=== PATIENT | female | born 1955 | race Caucasian/White ===

== ENCOUNTER → 2018-07-04 15:02 | Outpatient (CLI) | payer OTHER, SELFPAY ==
--- NOTE | 2018-07-04 15:09 | XR_ITS ---
XR knee RT 3V HISTORY: Right knee pain with locking ITS.REASON: LOCKING RT KNEE ORDERING PHYSICIAN: Cecelia Olson PATIENT AGE: 62 years COMPARISON: None FINDINGS: No fracture or dislocation. Mild bony spurring is present at the distal femur and proximal tibia laterally and at the interspinous region as well as the patellofemoral joint with slight decrease in the patellofemoral joint space. These findings are consistent with osteoarthritis. No obvious effusion. IMPRESSION: Osteoarthritis of the right knee worse at the patellofemoral joint
== END ==
PROVIDERS: PCP Nurse Practitioner Family; Visit Provider Nurse Practitioner Family
DX: M23.91 Unspecified internal derangement of right knee (principal)
CPT/HCPCS: 73562

== ENCOUNTER → 2020-02-08 12:01 | Outpatient (CLI) | payer MEDICARE, BC, SELFPAY ==
--- NOTE | 2020-02-08 12:07 | MR_ITS ---
PROCEDURE: MR LUMBAR SPINE WO CON CLINICAL INDICATION: LOW BACK PAIN, RIGHT HIP PAIN Low back pain and right leg pain COMPARISON: No exams were available for comparison TECHNIQUE: Standard multiplanar multiecho sequences are performed without contrast. 3-D MIP and myelographic images are also rendered and reviewed FINDINGS: The spinal cord ends at the L1 level. T11-T12, T12-L1, L1-L2, L2-L3, and L3-L4 have an unremarkable appearance. L4-5: There is 5 mm anterolisthesis of L4 with bulging disc at that level along with facet and ligamentum hypertrophy resulting in mild bilateral lateral recess and foraminal narrowing. There is some increased T2 signal within the mid and posterior aspect of the disc at this level. L5-S1: Minimal bulging disc. There is some minimal right paracentral disc protrusion which abuts the anterior medial aspect of the right S1 nerve root with the right lateral recess narrowing. Incidental note is made parapelvic renal cysts on both sides. IMPRESSION: 1. L4-5: There is 5 mm anterolisthesis of L4 with bulging disc at that level along with facet and ligamentum hypertrophy resulting in moderate bilateral lateral recess narrowing right greater than left with suggestion of some impingement upon the right L5 nerve root. There is mild bilateral foraminal narrowing at this level.. There is some increased T2 signal within the mid and posterior aspect of the disc at this level. 2. L5-S1: Minimal bulging disc. There is minimal right paracentral disc protrusion which abuts the anterior medial aspect of the right S1 nerve root with the right lateral recess narrowing 3. No extruded herniated disc evident. Dictated by: Gato Preciado MD 02/09/2020 12:46 Electronically signed by Gato Preciado MD in [place] 02/09/2020 12:46
--- NOTE | 2020-02-08 12:08 | MR_ITS ---
PROCEDURE: MR HIP RT W CON Right hip arthrogram CLINICAL INDICATION: LOW BACK PAIN, RIGHT HIP PAIN right hip pain, low back pain, tendinitis/bursitis COMPARISON: XR HIP RT 2-3V W/PELVIS from 02/08/2020 IR ARTHROGRAM HIP RT from 02/08/2020 TECHNIQUE: Following obtaining informed consent and time-out procedure under aseptic conditions and local anesthesia with 1 percent buffered lidocaine, 22 gauge spinal needle was inserted into the right hip joint capsule along the superior aspect of the right femoral neck. Approximately 10 mL of a mixture Optiray 320, normal saline, 1 percent lidocaine, and gadolinium was injected into the joint capsule and deemed to be in satisfactory position under our fluoroscopic guidance. The needle was then removed and spot views obtained. The patient tolerated the procedure well without evidence of immediate complication and then went to the MRI suite where post arthrographic MRI images were obtained. FINDINGS: Arthrogram: There was normal localization of contrast which flowed freely into the joint. Minimal osteoarthritic changes were noted. A calcified fibroid is present in the lower pelvis. MR arthrogram: There is no evidence of avascular necrosis. There are minimal osteoarthritic changes of both hips. No fracture or dislocation evident. There is normal localization of the contrast within the hip joint capsule and hip joint. The there was some extravasation of contrast into the soft tissues along the proximal femur anteriorly. No obvious labral tear. The overlying soft tissues have an unremarkable appearance. Incidental note is made of multiple hypo intense lesions within the uterus the largest inferiorly measuring 3.1 cm consistent with uterine fibroids IMPRESSION: 1. No evidence of avascular necrosis or labral tear. 2. Mild osteoarthritic changes of the hips. 3. Uterine fibroids Dictated by: Gato Preciado MD 02/09/2020 12:56 Electronically signed by Gato Preciado MD in [place] 02/09/2020 12:56
== END ==
PROVIDERS: PCP Family Medicine; Visit Provider Orthopaedic Surgery
DX: M54.5 Low back pain (principal); M25.551 Pain in right hip
CPT/HCPCS: 72148; 73502; 73525; 73722; 76376; Q9967

== ENCOUNTER 2020-03-12 14:00 | Outpatient (RCR) | payer MEDICARE, SELFPAY | END 2020-03-12 14:05 | disposition home or self-care (01) | LOC: PT 14:00 | DX: M51.36 Other intervertebral disc degeneration, lumbar region (principal); M25.551 Pain in right hip | CPT/HCPCS: 20560; 97010; 97014; 97035; 97110; 97163; 97164; G0283 ==

== ENCOUNTER 2020-09-13 15:00 | Outpatient (RCR) | payer MEDICARE, SELFPAY | END 2020-09-13 15:05 | disposition home or self-care (01) | LOC: PT 15:00 | PROVIDERS: PCP Family Medicine; Visit Provider Internal Medicine | DX: M25.551 Pain in right hip (principal); M51.36 Other intervertebral disc degeneration, lumbar region | CPT/HCPCS: 20561; 97010; 97012; 97014; 97033; 97035; 97110; 97163; 97164; G0283 ==

== ENCOUNTER → 2021-07-16 09:31 | Outpatient (CLI) | payer MEDICARE, SELFPAY | PROVIDERS: Visit Provider Internal Medicine Gastroenterology | DX: Z01.812 Encounter for preprocedural laboratory examination (principal); Z20.822 Contact with and (suspected) exposure to COVID-19; Z12.11 Encounter for screening for malignant neoplasm of colon | CPT/HCPCS: C9803; U0003; U0005 ==

== ENCOUNTER 2021-07-18 07:59 | Day surgery (SDC) | payer MEDICARE, BC, SELFPAY ==
[2021-07-11 09:08] VITALS: BMI 32.3
[2021-07-18] VITALS (7 sets, daily range): BP systolic 110–138; BP diastolic 60–96; PULSE 76–97; RESP 16–18; TEMP 36.1–36.2; O2SAT 93–98
--- NOTE | 2021-07-18 09:13 | HMH.ANESCL ---
[facility] Anesthesia Checklist - Patient Identification Patient Identification: Arm Band, Verbal (Name & ) - Structural Data Admitted From: Home Planned Operative Procedure/s: Colonoscopy Consent for Planned Operative Procedure(s) Verified: Yes Verified Documents: Surgical Consent - NPO Status Verified Time NPO: 05:00 - Cardiovascular Assessment Heart Sounds: S1 & S2 Pulse Rhythm: Regular - Airway Assessment C-Spine Mobility Assessed: Yes TMJ Mobility Assessed: Yes Dentition: Good Dentition - Neurological Assessment Level of Consciousness: Awake, Alert, Appropriate - Anesthesia Plan Anesthesia Risk discussed: Yes ASA Class: II Anesthesia Type: General [facility] History Medical History: Denies:: Cancer, Diabetes Mellitus Type 1, Diabetes Mellitus Type 2, Internal Pacemaker, MRSA, Seizures *Have you ever received a pneumonia vaccine?: Yes *Have you received a flu vaccine this season?: Yes Anesthesia experience/problems:: none Laterality Cases: Left: Other, Right: Cataract Other Surgeries: No: Pacemaker Amputation: No Fractures: No - *Social History Last grade of school completed: Some college Smoking Status: Never smoker Alcohol Intake: current Alcohol Intake Frequency:: a few times a month Substance Use Type: denies use *Occupational Status:: retired Housing: house Household Members: spouse *Travel in the last 8 weeks: Inside the [facility] Family Hx:: Hypertension
--- NOTE | 2021-07-18 10:29 | HMH.PROC ---
[facility] Procedure Note Procedure Note:: Colonoscopy Procedure Report: Colonoscopy with cold snare polypectomy Endoscopist: Dexter Cagle II, MD Referring physician: Gracie Hutton MD Date of Procedure: July 18, 2021 Equipment: Olympus 190 variable stiffness pediatric colonoscope Sedation: MAC sedation Indication: Mrs. Emery is a 65-year-old female who is here for follow-up screening/surveillance colonoscopy secondary to a personal history of adenomatous polyps. Her colonoscopy in July 2014 revealed a single sigmoid polyp (tubular adenoma) which was removed. The patient had colonoscopies prior to this (Dr. Jorge Alberto De La Paz). The patient is scheduled for cholecystectomy in mid July (she states WednesdayAugust 05) due to gallbladder sludge and possible gallbladder stones. She has had one gallbladder attack. She reports no abdominal pain, weight loss, change in her bowel habits or rectal bleeding. She reports no family history of colon cancer. Procedure: Prior to the procedure, a history and physical exam was performed, and patient's medications and allergies were reviewed. The risks, benefits and alternatives of the sedation and procedure were discussed with the patient. All questions were answered and informed consent was obtained. The patient was brought to the procedure room. Patient identification and proposed procedure were verified by the physician and the nurse. The patient was placed in a left lateral decubitus position and the scope was passed under direct vision. Throughout the procedure, the patient's blood pressure, pulse, and oxygen saturations were monitored continuously. The colonoscopy was accomplished without difficulty. The patient tolerated the procedure well. Findings: On digital rectal examination there was normal rectal tone. There were no external hemorrhoids. The colonoscope was introduced through the anal canal to the rectum and advanced to the cecum. The ileocecal valve and appendiceal orifice were identified. The scope was advanced a short distance into the ileum which appeared grossly normal. The scope was then withdrawn into the colon. The cecum, ascending and transverse colon and mucosa were grossly normal. There was a single 4 mm descending colon polyp removed via cold snare polypectomy. There were scattered diverticuli throughout the descending and sigmoid colon (LEFT colon). The rectum itself was normal. Upon retroflexion within the rectum there were grade 1-2 internal hemorrhoids. The preparation was excellent throughout with [place] Preparation Score of 9. The cecal time was 12 minutes. Impression: 1. Diminutive descending colon polyp (4 mm) 2. Left-sided diverticulosis 3. Grade 1-2 internal hemorrhoids Plan: I will follow up the polyp pathology and recommend repeat colonoscopy again in 7-10 years based upon the polyp histology. I would encourage bulking fiber supplementation on a long-term daily maintenance basis.
== END 2021-07-18 11:35 | disposition home or self-care (01) ==
LOC: OUTP 08:02
PROVIDERS: PCP Internal Medicine; Visit Provider Internal Medicine Gastroenterology
PROC: 0DJD8ZZ Inspection of Lower Intestinal Tract, Via Natural or Artificial Opening Endoscopic (ICD-10-PCS; CPT 45378; principal; 2021-07-18 09:00)
DX: Z12.11 Encounter for screening for malignant neoplasm of colon (principal); Z86.010 Personal history of colon polyps; K63.5 Polyp of colon; K57.32 Diverticulitis of large intestine without perforation or abscess without bleeding; K64.0 First degree hemorrhoids; Z82.49 Family history of ischemic heart disease and other diseases of the circulatory system; Z88.1 Allergy status to other antibiotic agents; Z88.8 Allergy status to other drugs, medicaments and biological substances; Z79.899 Other long term (current) drug therapy
CPT/HCPCS: 45385; 88305

== ENCOUNTER 2022-03-23 15:57 | Emergency (ER) | payer MEDICARE, BC, SELFPAY ==
[2022-03-23 15:58] VITALS: BP 114/79; PULSE 93; RESP 16; TEMP 36.6; O2SAT 98; BMI 30.4
[2022-03-23 16:30] VITALS: BP 125/81; PULSE 89; RESP 16; O2SAT 98
--- NOTE | 2022-03-23 16:30 | HMH.EDGENADL ---
ED Disposition Clinical Impression: Head injury Qualifiers: Encounter type: initial encounter Qualified Code(s): S09.90XA - Unspecified injury of head, initial encounter Disposition: Home, Self-Care Condition on Discharge: Good Referrals: Provider,Referral, [Primary Care Provider] - - Critical Care Critical Care Time: No Attestation: On 03/23/22, the high probability of a clinically significant, sudden or life threatening deterioration of the following system(s) required my full and direct attention, intervention and personal management. The time I documented below is in addition to time spent performing reported procedures but includes the following listed in this critical care notation. Medical Decision Making - Medical Records Medical records reviewed: Yes: I reviewed the patient's medical records. - [place] Inquiry Pt receiving controlled substance: No Vital Signs: 03/23/22 15:58 03/23/22 16:30 Temperature 98 F Temperature Source Oral Pulse Rate 89 Pulse Rate [Radial] 93 H Respiratory Rate 16 16 Blood Pressure 125/81 Blood Pressure [Right Arm] 114/79 Blood Pressure Mean 96 Blood Pressure Mean [Right Arm] 90 Blood Pressure Position [Right Arm] Sitting 02 Sat by Pulse Oximetry 98 98 Oxygen Delivery Method Room Air - Lab Data Lab results reviewed: Yes: I reviewed the patient's lab results. Orders (Tests/Meds): ED MEDICATIONS Generic Name Dose Route Start Last Admin Trade Name Freq PRN Reason Stop Dose Admin Methocarbamol 1,000 mg 03/23/22 21:00 03/23/22 16:59 Methocarbamol 500mg Tablet PO 04/22/22 20:59 1,000 mg BID SEFERINO Administration Discontinued Medications Generic Name Dose Route Start Last Admin Trade Name Freq PRN Reason Stop Dose Admin Acetaminophen 1,000 mg 03/23/22 16:52 03/23/22 16:59 Acetaminophen 500mg Tab PO 03/23/22 16:53 1,000 mg ONCE ONE Administration Ibuprofen 400 mg 03/23/22 16:52 03/23/22 16:59 Ibuprofen 400 Mg Tablet PO 03/23/22 16:53 400 mg ONCE ONE Administration Medical Decision Narrative: Patient is a 66-year-old female presenting with a chief complaint of headache and dizziness after she fell and hit her head. Differential diagnosis includes, but is not limited to, skull fracture, intracranial bleeding, injury to the neck, concussion, posttraumatic headache. On initial exam, patient is hemodynamically stable and nontoxic-appearing. She has a nonfocal neurological exam and intact cerebellar function. She was treated with Tylenol, Motrin, Robaxin and evaluate CT head and CT C-spine. Imaging was negative for acute injury. On reassessment, patient continues to be stable. She was advised regarding supportive care at home, discharged in a stable condition. General Adult HPI - General Chief complaint: Head Injury Stated complaint: ao 03/23 FELL HIT HEAD Time Seen by Provider: 03/23/22 16:30 Mode of Arrival: Ambulatory Limitations: No Limitations Description of Symptoms (Recalled from ER Triage Doc. by RN): TO ED PER PVT CAR PT STATES FELL BACKWARDS OFF A SWING HITTING BACK OF HEAD ON CONCRETE DENIES ANY LOC, NAUSEA, VOMITING. PT STATES SHE FELT DIZZY WHEN SHE STOOD UP FROM FALLING. - History of Present Illness HPI narrative: Kaylynn is a 66-year-old female presenting with a chief complaint of head injury. Patient was to sit on a swing but missed and hit the occipital part of her head on the concrete. She denies loss of consciousness but states that she has been feeling dizzy and has a headache. No focal weakness or numbness or difficulty with coordination. Patient has not been confused per . She does not take blood thinners. - Related Data Home Medications Medication Instructions Recorded Confirmed Bifidobacterium Infantis [Align] 4 mg PO DAILY 07/11/21 07/18/21 Diclofenac Sodium [Diclofenac 75mg 75 mg PO BID 07/11/21 07/18/21 Tab] Esomeprazole Magnesium [Nexium] 40 mg PO DAILY
--- NOTE | 2022-03-23 16:51 | CT_ITS ---
PROCEDURE INFORMATION: Exam: CT Head Without Contrast Exam date and time: 03/23/2022 5:03 PM Age: 66 years old Clinical indication: Injury or trauma; Fall; Blunt trauma (contusions or hematomas); Without loss of consciousness; Injury date: 03/23/22; Additional info: Head injury-s/p fall out of porch swing hit head on concrete TECHNIQUE: Imaging protocol: Computed tomography of the head without contrast. Radiation optimization: All CT scans at this facility use at least one of these dose optimization techniques: automated exposure control; mA and/or kV adjustment per patient size (includes targeted exams where dose is matched to clinical indication); or iterative reconstruction. COMPARISON: No relevant prior studies available. FINDINGS: Brain: Normal. No hemorrhage. Unremarkable white matter. No mass effect. Cerebral ventricles: No ventriculomegaly. Paranasal sinuses: Visualized sinuses are unremarkable. No fluid levels. Mastoid air cells: Visualized mastoid air cells are well aerated. Bones/joints: Unremarkable. No acute fracture. Soft tissues: Unremarkable. IMPRESSION: No acute intracranial abnormality.
--- NOTE | 2022-03-23 16:52 | CT_ITS ---
PROCEDURE INFORMATION: Exam: CT Cervical Spine Without Contrast Exam date and time: 03/23/2022 5:06 PM Age: 66 years old Clinical indication: Injury or trauma; Fall; Blunt trauma; Injury date: 03/23/22; Additional info: Neck pain S/P fall-s/p fall out of porch swing hit head on concrete TECHNIQUE: Imaging protocol: Computed tomography images of the cervical spine without contrast. Radiation optimization: All CT scans at this facility use at least one of these dose optimization techniques: automated exposure control; mA and/or kV adjustment per patient size (includes targeted exams where dose is matched to clinical indication); or iterative reconstruction. COMPARISON: CT HEAD/BRAIN WO CON 03/23/2022 5:03 PM FINDINGS: Bones/joints: No acute fracture. Normal alignment. Discs/Spinal canal/Neural foramina: Disc spaces are preserved. No significant disc protrusion. No severe spinal canal stenosis. No significant neural foraminal narrowing. Lungs: Lung apices are normal. Thyroid: 1.0 cm low-density right thyroid lobe nodule. Absent left thyroid lobe. Soft tissues: Unremarkable. IMPRESSION: 1. No acute findings within the cervical spine. 2. 1.0 cm low-density right thyroid lobe nodule. No follow-up imaging is recommended. COMMENTS: Consistent with the [employer]'s Incidental Findings Committee white paper (J Am [employer]ta Radiol 2015): In patients aged 35 years and older with an incidental thyroid nodule equal to or greater than 1.[address], MRI or extrathyroidal US, further evaluation with dedicated thyroid US is recommended for patients with normal life expectancy and without comorbidities. For smaller nodules without suspicious features, no further evaluation or follow up is recommended.
[2022-03-23 18:32] VITALS: BP 136/89; PULSE 78; RESP 16; TEMP 36.6; O2SAT 98
== END 2022-03-23 18:33 | disposition home or self-care (01) ==
PROVIDERS: Emergency Provider Emergency Medicine
DX: S09.90XA Unspecified injury of head, initial encounter (principal); R42 Dizziness and giddiness; R51.9 Headache, unspecified; Z79.52 Long term (current) use of systemic steroids; Z79.899 Other long term (current) drug therapy; Z88.2 Allergy status to sulfonamides; Z88.8 Allergy status to other drugs, medicaments and biological substances; W09.1XXA Fall from playground swing, initial encounter
CPT/HCPCS: 70450; 72125; 99285

== ENCOUNTER → 2022-10-02 12:58 | Outpatient (CLI) | payer MEDICARE, BC, SELFPAY | PROVIDERS: PCP Internal Medicine; Visit Provider Internal Medicine | DX: G47.33 Obstructive sleep apnea (adult) (pediatric) (principal); G47.9 Sleep disorder, unspecified; R06.83 Snoring; I10 Essential (primary) hypertension; G47.00 Insomnia, unspecified; E66.3 Overweight; Z68.31 Body mass index [BMI] 31.0-31.9, adult | CPT/HCPCS: G0399 ==

== ENCOUNTER 2023-01-07 13:00 | Outpatient (RCR) | payer MEDICARE, BC, SELFPAY | END 2023-01-07 13:05 | disposition home or self-care (01) | LOC: PT 13:00 | PROVIDERS: PCP Internal Medicine; Visit Provider Internal Medicine | DX: M25.551 Pain in right hip (principal); M54.50 Low back pain, unspecified; M54.16 Radiculopathy, lumbar region | CPT/HCPCS: 20560; 97010; 97014; 97035; 97110; 97140; 97163; 97164; G0283 ==

== ENCOUNTER → 2023-09-01 13:02 | Outpatient (CLI) | payer MEDICARE, BC, SELFPAY ==
--- OUTSIDE RECORDS SUMMARY | 2023-09-01 13:05 | XMS_ITS ---
Care Plan - [facility] Created on: September 01, 2023 Kaylynn Emery : 1955 Sex: Female Author Name Unknown Address [address] [place] [address] Phone Organization [facility] Address [address] [place] [address] Phone Care Team Providers Care Infrastructure Consultant Name Role Phone RENEE CRISTINA, YOLI Greco Primary Care Provider [phone] Adam Echavarria MD Unavailable [phone]
--- OUTSIDE RECORDS SUMMARY | 2023-09-01 13:05 | XMS_ITS ---
Author Name Unknown Address [address] [place] [address] Phone Organization [facility] Address [address] [place] [address] Phone Care Team Providers Care Qc Tech Name Role Phone RENEE CRISTINA, YOLI Greco Primary Care Provider [phone] [place] CRISTINA, Adam Peña Unavailable [phone] Problems Includes: Active, inactive, and resolved Problems All Visits Onset Date Resolved Date Provider Condition S tatus Joint Pain in the Right Hip 07/08/2017 Mikhail Scott MD Active Plan of Treatment Future Appointments Date Time Location Provi [facility]is Follow Up 09/02/2023 11:00AM [facility] Instructions to patient Lose weight Last Documented On 3 10:46AM ; [facility] Lose weight Last Documented On 3 1:41PM ; [facility] Lose weight Last Documented On 3 1:09PM ; [facility]
--- OUTSIDE RECORDS SUMMARY | 2023-09-01 13:05 | XMS_ITS | Clinical Summary ---
Author Name Unknown Address [address] [place] [address] Phone Organization [facility] Address [address] [place] [address] Phone Care Team Providers Care Senior Business Development Manager Name Role Phone RENEE CRISTINA, YOLI Greco Primary Care Provider [phone] Adam Echavarria MD Unavailable [phone] Reason for Visit and Chief Complaint Epidural Steroid Injection Problems Includes: Problems addressed during this encounter and other active Problems All Visits Onset Date Resolved Date Provider Condition S tatus Joint Pain in the Right Hip 07/08/2017 Mikhail Scott MD Active Plan of Treatment Future Appointments Date Time Location [facility] Follow Up 09/02/2023 11:00AM [facility] Assessments Includes: Assessments from this encounter No Assessments Recorded Medical Equipment - Implanted Devices Includes: Current Devices No Medical Equipment Recorded Medications Includes: Medications discussed during this encounter and other current Medications Current Medications (continue as prescribed) traZODone HCl 50 MG Oral Tablet 12/15/2022 Provider:
--- OUTSIDE RECORDS SUMMARY | 2023-09-01 13:05 | XMS_ITS | Clinical Summary ---
Author Name Unknown Address [address] [place] [address] Phone Organization [facility] Address [address] [place] [address] Phone Care Team Providers Care Manager [place] Name Role Phone RENEE CRISTINA, YOLI Greco Primary Care Provider [phone] Adam Echavarria MD Unavailable [phone] Reason for Visit and Chief Complaint Epidural Steroid Injection Problems Includes: Problems addressed during this encounter and other active Problems All Visits Onset Date Resolved Date Provider Condition S tatus Joint Pain in the Right Hip 07/08/2017 Mikhail Scott MD Active Plan of Treatment Future Appointments Date Time Location Provi cl[facility]is Follow Up 09/02/2023 11:00AM [facility] Assessments Includes: Assessments from this encounter No Assessments Recorded Medical Equipment - Implanted Devices Includes: Current Devices No Medical Equipment Recorded Medications Includes: Medications discussed during this encounter and other current Medications Current Medications (continue as prescribed) traZODone HCl 50 MG Oral Tablet 12/15/2022 Provider:
--- OUTSIDE RECORDS SUMMARY | 2023-09-01 13:05 | XMS_ITS | Clinical Summary ---
Author Name Unknown Address [address] [place] [address] Phone Organization [facility] Address [address] [place] [address] Phone Care Team Providers Care Boning Room Worker Name Role Phone RENEE CRISTINA, YOLI Greco Primary Care Provider [phone] Adam Echavarria MD Unavailable [phone] Reason for Visit and Chief Complaint Epidural Steroid Injection Problems Includes: Problems addressed during this encounter and other active Problems All Visits Onset Date Resolved Date Provider Condition S tatus Joint Pain in the Right Hip 07/08/2017 Mikhail Scott MD Active Plan of Treatment Future Appointments Date Time Location [facility]vi cl[facility] Follow Up 09/02/2023 11:00AM [facility] Assessments Includes: Assessments from this encounter No Assessments Recorded Medical Equipment - Implanted Devices Includes: Current Devices No Medical Equipment Recorded Medications Includes: Medications discussed during this encounter and other current Medications Current Medications (continue as prescribed) traZODone HCl 50 MG Oral Tablet 12/15/2022 Provider:
--- OUTSIDE RECORDS SUMMARY | 2023-09-01 13:05 | XMS_ITS | Clinical Summary ---
Author Name Unknown Address [address] [place] [address] [facility] Address [address] [place] [address] Phone Care Team Providers Care K 9 Police Officer Name Role Phone RENEE CRISTINA, YOLI Greco Primary Care Provider [phone] Adam Echavarria MD Unavailable [phone] Reason for Visit and Chief Complaint The Chief Complaint is: Lumbar pain Problems Includes: Problems addressed during this encounter and other active Problems All Visits Onset Date Resolved Date Provider Condition S tatus Joint Pain in the Right Hip 07/08/2017 Mikhail Scott MD Active Plan of Treatment Future Appointments Date Time Location [facility] Follow Up 09/02/2023 11:00AM [facility] Instructions to patient Lose weight Last Documented On 3 1:41PM ; [facility] Assessments Includes: Assessments from this encounter Findings 2 view lumbar x-rays demonstrate stable L4-L5 spondylolisthesis - Last Documented On
--- OUTSIDE RECORDS SUMMARY | 2023-09-01 13:05 | XMS_ITS | Clinical Summary ---
Author Name Unknown Address [address] [place] [address] Phone Organization [facility] Address [address] [place] [address] Phone Care Team Providers Care Plasterer Journeyman Name Role Phone RENEE CRISTINA, YOLI Greco Primary Care Provider [phone] Adam Echavarria MD Unavailable [phone] Reason for Visit and Chief Complaint The Chief Complaint is: Lumbar pain Problems Includes: Problems addressed during this encounter and other active Problems All Visits Onset Date Resolved Date Provider Condition S tatus Joint Pain in the Right Hip 07/08/2017 Mikhail Scott MD Active Plan of Treatment Pending Tests Order Diagnosis Results Due Ordering P rovider Therapy - Physical Therapy Lumbar Low back pain 07/08/23 Trino Hoff PA-C Future Appointments Date Time Location [facility] Follow Up 09/02/2023 11:00AM [facility] Instructions to patient Lose weight Last Documented On 10:46AM ; [facility]
--- OUTSIDE RECORDS SUMMARY | 2023-09-01 13:06 | XMS_ITS | Patient Health Record ---
Author Name Unknown Organization [facility] Address [address] [place] [id number] Care Team Providers Care Fuel Pilot Engineer Name Role Phone Rachell Hutton Primary Care Provider ISAEL [id number] [place] Unavailable ALLERGIES Allergen (clinical drug ingredient) Drug/Non Drug Allergy documented on EMR Reaction Allergy Type Onset Date Status sulfamethoxazole / trimethoprim Bactrim gastrointestinal upset Drug Allergy Active cefdinir Cefdinir dizziness Drug Allergy Active REASON FOR REFERRAL No Information MEDICATIONS Medication SIG (Take, Route, Fr equency, Duration) Notes Start Date End Date Status NexIUM 40 MG 1 capsule Orally Once a day Active Lisinopril 10 MG 1 tablet Orally Once a day Active Gabapentin 400 MG 1 capsule Orally Once a day Active Flexgen - as directed Orally A ctive SOCIAL HISTORY Sex Assigned At : Social History Observation Description Sex Assigned At Unknown PROBLEMS Problem Type ICD Code Onset Dates Problem Status W/U Status Risk SNOMED Code Notes Problem BMI 31.0-31.9,adult (Z68.31) Active confirmed Body mass index 30.00 to 34.99 ([id number] ) Problem Hypertension (I10) Active confirmed Hypertension ([id number])
--- NOTE | 2023-09-01 13:07 | XR_ITS ---
FINAL REPORT CLINICAL HISTORY: Planar fasciitis left foot COMPARISON: None FINDINGS: AP, oblique and lateral views of the left foot were obtained. There is no prior exam for comparison. There are postoperative changes from prior fusion of the 1st MTP joint. There is no acute fracture or dislocation. There is mild degenerative joint disease. There is no acute soft tissue abnormality. IMPRESSION: Postoperative and degenerative changes without acute osseous abnormality of the left foot. Reviewed, Interpreted and Dictated by Miranda Acevedo MD Transcribed by Holly Hutton Authenticated and [facility]
== END ==
PROVIDERS: PCP Internal Medicine; Visit Provider Podiatrist
DX: M72.2 Plantar fascial fibromatosis (principal); M79.672 Pain in left foot
CPT/HCPCS: 73630

== ENCOUNTER 2023-12-30 22:40 | Emergency (ER) | payer MEDICARE, BC, SELFPAY ==
[2023-12-30 22:55] VITALS: BP 158/88; PULSE 104; RESP 18; TEMP 36.9; O2SAT 97; BMI 33.0
--- NOTE | 2023-12-30 23:06 | CT_ITS ---
PROCEDURE INFORMATION: Exam: CT Abdomen And Pelvis With Contrast Exam date and time: 12/30/2023 11:33 PM Age: 67 years old Clinical indication: Abdominal pain; Additional info: Llq pain 24 hrs TECHNIQUE: Imaging protocol: Computed tomography of the abdomen and pelvis with contrast. Radiation optimization: All CT scans at this facility use at least one of these dose optimization techniques: automated exposure control; mA and/or kV adjustment per patient size (includes targeted exams where dose is matched to clinical indication); or iterative reconstruction. Contrast material: ISOVUE; Contrast volume: 75 ml; Contrast route: IV; COMPARISON: DX XR HIP RT 2-3V W/PELVIS 02/08/2020 1:27 PM FINDINGS: Lungs: Mild subsegmental atelectasis in the lung bases. Granulomatous calcification in the left lower lobe. Heart: Heart size normal. Fatty transformation in the left ventricular inferior wall and anteroapical region suggesting chronic myocardial infarct. Diaphragm: Small hiatal hernia. Liver: Granulomatous calcifications in the liver.Question mild generalized fatty infiltration of the liver. Normal contour. No mass lesions. No intrahepatic biliary ductal dilatation. Gallbladder and bile ducts: Prior cholecystectomy with no significant dilatation of the common bile duct. Pancreas: No acute pancreatic abnormalities. 5 mm lipoma versus incidental fatty interdigitation in the anterior pancreatic head. No ductal dilatation or changes of pancreatitis. Spleen: Granulomatous calcifications in the spleen without acute splenic abnormality. Adrenal glands: Normal. No adrenal mass. Kidneys and ureters: No acute abnormalities. No hydronephrosis or hydroureter. No urinary tract stones are identified. Small probable peripelvic cysts in both renal armond. Stomach and bowel: The stomach is largely contracted. The small bowel is nondilated with no gross abnormality. Mild-moderate distal colonic diverticulosis with short segment moderate colonic wall thickening and moderate surrounding stranding in the proximal sigmoid colon consistent with acute diverticulitis. No perforation or abscess. Appendix: The appendix is normal in caliber and demonstrates no evidence of appendicitis. Intraperitoneal space: Trace intrapelvic simple reactive fluid. No free air. Vasculature: No acute process. No abdominal aortic aneurysm. Lymph nodes: No adenopathy. Urinary bladder: Unremarkable as visualized. Reproductive: 3 cm calcified fibroid in the leftward uterine fundus. Bones/joints: No acute osseous abnormalities. Moderate disc degenerative changes and grade 1 anterolisthesis L4-L5 with moderate canal stenosis. Soft tissues: Chronic scarring in the anterior midline infraumbilical region. IMPRESSION: 1. Moderate changes of acute diverticulitis in the proximal sigmoid colon. No perforation or abscess. 2. Mild-moderate distal colonic diverticulosis. 3. Trace intrapelvic reactive fluid. No free air. 4. Additional nonemergent findings detailed above. COMMENTS: Consistent with the [employer]'s Incidental Findings Committee white paper (J [employer] Radiol 2018): Any incidental renal lesion less than 1 cm or classified as too small to characterize, or any incidental cystic renal lesion characterized as simple-appearing, is likely benign. No follow-up imaging is recommended for these lesions per consensus recommendations based on imaging criteria.
[2023-12-30 23:12] LABS: Microscopic, Urine URINE MICROSCOPIC (MICROSCOPIC)
[2023-12-30] MEDS: KETOROLAC 30MG/ML VIAL 30 MG IV (23:13)
[2023-12-30] MEDS: ACETAMINOPHEN 500MG TAB 1000 MG PO (23:13)
[2023-12-30 23:15] LABS: Basophils # 0.1 K/mm3 (0-0.2); Basophils % 0.7 % (0.1-2.0); Eosinophils # 0.2 K/mm3 (0.0-0.4); Eosinophils % 1.2 % (0.1-12.0); Hemoglobin 14.4 g/dL (12.2-16.2); Lymphocytes # 2.4 K/mm3 (0.7-4.5); Lymphocytes % 16.8 % (10-50); Mean Corpuscular HGB Conc 32.8 g/dL (31.8-35.4); Mean Corpuscular Hemoglobin 30.6 pg (27.0-31.2); Mean Corpuscular Volume 93.2 fl (81-99); Mean Platelet Volume 8.6 fl (7.4-10.4); Monocytes # 1.4 K/mm3 (0.1-1.0); Monocytes % 9.6 % (1.7-9.3); Neutrophils # 10.3 K/mm3 (1.8-7.8); Neutrophils % 71.6 % (37.0-80.0); Platelet Count 267 K/mm3 (142-424); Red Blood Count 4.72 M/mm3 (4.20-5.40); Red Cell Distribution Width 16.3 % (11.5-17.5); White Blood Count 14.4 K/mm3 (4.8-10.8)
[2023-12-30 23:19] LABS: Alanine Aminotransferase 22 U/L (12-78); Albumin Level 4.3 g/dl (3.5-5.0); Albumin/Globulin Ratio 1.5 (1.1-1.8); Alkaline Phosphatase 87 U/L (38-126); Anion Gap 11.8 mEq/L (5-15); Aspartate Amino Transferase 29 U/L (14-36); Bilirubin,Total 0.8 mg/dl (0.2-1.3); Blood Urea Nitrogen 16 mg/dl (7-17); Calcium 9.3 mg/dl (8.4-10.2); Carbon Dioxide 23 mmol/L (22.0-30.0); Chloride 107 mmol/L (98-107); Creatinine Clearance Estimated 79 mL/min (50-200); Estimated Glomerular Filt Rate 62 ml/min (>60); GFR (African American) 75 ML/MIN (>60); Globulin 2.9 g/dL (1.3-3.2); Glucose 118 mg/dl (74-100); Potassium 3.8 mmoL/L (3.5-5.1); Sodium 138 mmol/L (136-145); Total Protein,Serum 7.2 g/dl (6.3-8.2)
[2023-12-30 23:23] LABS: Appearance,Urine SL CLOUDY (Clear); Bilirubin,Urine Negative (Negative); Blood, Urine 2+ (Negative); Color,Urine YELLOW (Yellow); Glucose,Urine (UA) Negative (Negative); Ketones,Urine Negative (Negative); Leukocyte Esterase,Urine 2+ (Negative); Nitrate,Urine Negative (Negative); Protein,Urine Negative (Negative); Specific Gravity, Urine <= 1.005 (1.005-1.030); Urobilinogen,Urine 0.2 EU/dl (0.2)
--- NOTE | 2023-12-30 23:35 | ED_ITS ---
Discharge Plan Disposition Patient Disposition: Home, Self-Care Prescriptions Prescriptions: New amoxicillin-pot clavulanate 875-125 mg tablet 1 tab PO BID 5 Days Qty: 10 0RF No Action lisinopril 10 mg tablet 10 mg PO DAILY gabapentin 300 mg capsule 300 mg PO .COMPLEX Rx Instructions: 300 mg orally one am,one pm ,2 at hs; cholecalciferol (vitamin D3) 25 mcg (1,000 unit) tablet 25 mcg PO DAILY vitamin E 268 mg (400 unit) capsule 804 mg PO DAILY multivitamin [Daily Multi-Vitamin] Tablet 1 tab PO DAILY melatonin 10 mg capsule 10 mg PO HS PRN meloxicam 7.5 mg tablet 7.5 mg PO DAILY 30 Days Qty: 30 2RF diclofenac sodium 1 % gel 4 g topical QID PRN (Reason: pain ) 30 Days Qty: 100 2RF Rx Instructions: apply to single, ankle, foot; for foot includes sole/toes/top of foot fluticasone propionate 120 SPR/BOT bottle 1 - 2 spr intranasal DAILY Rx Instructions: each nostril daily Referrals Follow up/Referrals: Gracie Hutton MD [Primary Care Provider] - See instructions Activity Restrictions/Add. Instructions Additional Instructions/Restrictions: Please take antibiotics as prescribed. Please follow-up with your primary care provider. Please return to the emergency department if you develop any new or worsening symptoms or become concerned for your health. Clinical Impressions Clinical Impression: Diverticulitis Instructions Patient Instructions: DI for Acute Abdominal Pain Discharge ED Provider: Kirk Cool Adult HPI General Chief complaint: Abdominal Pain Stated complaint: Abd pain, fever Time Seen by Provider: 12/30/23 23:01 Mode of Arrival: Ambulatory Source of Information: Patient Limitations: No Limitations Description of Symptoms (Recalled from ER Triage Doc. by RN): Pt presents with abdominal cramping, gas and nausea since yesterday. LBM was yesterday and normal. History of Present Illness HPI narrative: 67-year-old female with history of diverticulosis presents with left lower quadrant pain for the last 24 hours. She reports that she had a hernia on the right side in the past that required resection, this was approximately 15 years ago. She denies any fever at home. She denies any significant nausea vomiting or diarrhea. Patient denies any urinary symptoms. Related Data Home Medications Medication Instructions Recorded Confirmed fluticasone propionate 50 1 - 2 spr intranasal DAILY 07/11/21 12/23/23 mcg/actuation nasal ALLERGIES spray,suspension cholecalciferol (vitamin D3) 25 25 mcg PO DAILY 09/09/22 12/23/23 mcg (1,000 unit) tablet gabapentin 300 mg capsule 300 mg PO .COMPLEX 09/09/22 12/23/23 lisinopril 10 mg tablet 10 mg PO DAILY 09/09/22 12/23/23 vitamin E 268 mg (400 unit) capsule 804 mg PO DAILY 10/07/23 12/23/23 melatonin 10 mg capsule 10 mg PO HS PRN 12/23/23 12/23/23 multivitamin (Daily Multi-Vitamin 1 tab PO DAILY 12/23/23 12/23/23 tablet) Previous Rx's Medication Instructions Recorded diclofenac sodium 1 % topical gel 4 g topical QID PRN pain 30 days 12/23/23 #100 grams meloxicam 7.5 mg tablet 7.5 mg PO DAILY pain 30 days #30 12/23/23 tabs amoxicillin 875 mg-potassium 1 tab PO BID 5 days #10 tabs 12/31/23 clavulanate 125 mg tablet Allergies Allergy/AdvReac Type Severity Reaction Status Date / Time cefaclor [From Ceclor] Allergy Verified 12/23/23 09:44 cefuroxime [From Ceftin] Allergy Verified 12/23/23 09:44 sulfamethoxazole Allergy Joint Pain Verified 12/23/23 09:44 [From Bactrim] trimethoprim [From Bactrim] Allergy Joint Pain Verified 12/23/23 09:44 [facility] Disclaimer: The information contained in this section may have been updated after the patient was seen, as this information can be updated by other users. Medical History Hypertension Insomnia Slowly noticing symptomatic improvement with treatment of KEZIA in addition to melatonin, gabapentin, cyclobenzaprine all taken at 9 PM. Did not care for trazodone. KEZIA (obstructive sleep apnea) Moderate nonpositional KEZIA, compliant on CPAP Surgical History History of 2 sections History of colon resection Family History Father Hypertension Arthritis Mother Arthritis Asthma Social History Smoking Status: Never smoker second hand exposure: No alcohol intake: current substance use type: denies use current occupational status: retired Travel in the last 8 weeks: Inside the [place] household members: spouse housing: house current occupational exposures/hazards: No caffeine: Yes ROS Obtained: Yes All systems reviewed & no additional complaints except as documented Physical Exam General General appearance: alert and in no apparent distress Head Head exam: atraumatic and normocephalic Eye Eye exam: Present normal appearance, PERRL and EOMI ENT ENT exam: Present normal oropharynx and normal external ear exam Neck Neck exam: Present normal inspection and full ROM Chest Chest inspection: Present normal inspection and symmetric chest wall rise; Absent tenderness Respiratory Respiratory exam: Present normal lung sounds bilaterally; Absent respiratory distress Cardiovascular Cardiovascular exam: Present regular rate and normal rhythm Abdominal Exam Abdominal exam: Present soft and tenderness (Left lower quadrant); Absent distention or guarding Extremities Exam Extremities exam: Present normal inspection; Absent edema or joint swelling Back Exam Back exam: Present normal inspection; Absent tenderness Neurological Exam Neurological exam: Present alert and oriented X3; Absent motor sensory deficit Psychiatric Psychiatric exam: Present normal affect and normal mood Skin Skin exam: Present warm, dry and normal color Lymphatic Lymphatic Findings: no adenopathy Medical Decision Making Medical Records Medical records reviewed: Yes I reviewed the patient's medical records. [place] Inquiry Pt receiving controlled substance: No [place] was queried for this patient: No Vital Signs: 12/30/23 22:55 12/31/23 00:33 Temperature 98.4 F 98.0 F Temperature Source Oral Oral Pulse Rate 92 H Pulse Rate [Left] 104 H Respiratory Rate 18 17 Blood Pressure 137/73 Blood Pressure [Right Arm] 158/88 H Blood Pressure Mean [Right Arm] 111 Blood Pressure Source Automatic Cuff Blood Pressure Source [Right Arm] Automatic Cuff Blood Pressure Position Sitting Blood Pressure Position [Right Arm] Supine 02 Sat by Pulse Oximetry 97 Oxygen Delivery Method Room Air Room Air Lab Data Lab results reviewed: Yes I reviewed the patient's lab results. Lab Results 12/30/23 22:45: WBC 14.4 H, RBC 4.72, Hgb 14.4, Hct 44.0, MCV 93.2, MCH 30.6, MCHC 32.8, RDW 16.3, Plt Count 267, MPV 8.6, Neut % (Auto) 71.6, Lymph % (Auto) 16.8, [place] % (Auto) 9.6 H, Eos % (Auto) 1.2, Baso % (Auto) 0.7, Neut # (Auto) 10.3 H, Lymph # (Auto) 2.4, [place] # (Auto) 1.4 H, Eos # (Auto) 0.2, Baso # (Auto) 0.1, Sodium 138, Potassium 3.8, Chloride 107, Carbon Dioxide 23, Anion Gap 11.8, BUN 16, Creatinine 0.90, Estimated Creat Clear 79, Estimated GFR 62, Est GFR ( Amer) 75, Glucose 118 H, Calcium 9.3, Total Bilirubin 0.8, AST 29, ALT 22, Alkaline Phosphatase 87, Total Protein 7.2, Albumin 4.3, Globulin 2.9, Albumin/Globulin Ratio 1.5, Urine Color Yellow, Urine Appearance Sl cloudy, Urine pH 6.0, Ur Specific [place] <= 1.005, Urine Protein Negative, Urine Glucose (UA) Negative, Urine Ketones Negative, Urine Blood 2+, Urine Nitrate Negative, Urine Bilirubin Negative, Urine Urobilinogen 0.2, Ur Leukocyte Esterase 2+ A, Urine RBC 3-5, Urine WBC 5-10, Ur Squamous Epith Cells 3-5, Urine Bacteria Trace 12/30/23 22:45 12/30/23 22:45 Orders (Tests/Meds): ED MEDICATIONS Discontinued Medications Generic Name Dose Route Start Last Admin Trade Name Yuliya PRN Reason Stop Dose Admin Acetaminophen 1,000 mg 12/30/23 23:06 12/30/23 23:13 Acetaminophen 500mg Tab PO 12/30/23 23:07 1,000 mg ONCE ONE Administration Amoxicillin/Clavulanate Potassium 1 each 12/31/23 00:25 12/31/23 00:34 Amoxicillin/Clavulanate Potassium 875/125mg Tablet PO 12/31/23 00:26 1 each ONCE ONE Administration Iopamidol 75 ml 12/30/23 23:41 12/30/23 23:42 Iopamidol-370 (76%);100ml Bottle IV 12/30/23 23:42 75 ml ONCE ONE Administration Ketorolac Tromethamine 30 mg 12/30/23 23:06 12/30/23 23:13 Ketorolac 30mg/Ml Vial IV 12/30/23 23:07 30 mg ONCE ONE Administration Sodium Chloride 10 ml 12/30/23 23:41 12/30/23 23:42 Sodium Chloride 0.9% 10ml Syr (Rad Only) IV 01/29/24 23:40 10 ml NEEDED PRN Administration Maintain IV Site ORDERS Category Date Time Status CT abdomen pelvis w con Stat Cat Scan 12/30/23 23:06 Completed CBC w/Auto Diff [Complete Blood Count Auto Diff] Stat Lab 12/30/23 22:45 Completed CMP [Comprehensive Metabolic Panel] Stat Lab 12/30/23 22:45 Completed UA [Urinalysis and Microscopic] Stat Lab 12/30/23 22:45 Completed Urine Culture Stat Micro 12/30/23 22:45 Received Medical Decision Narrative: 67-year-old female with history of prior incarcerated hernia and resection approximate 15 years ago, history of diverticulosis, presents with left lower quadrant abdominal pain for the last 24 hours.. History was obtained interactive discussion with patient, chart review. On arrival, patient is [afebrile, hemodynamically stable, satting appropriately, alert, oriented x4, GCS 15], moving all extremities spontaneously. Full physical exam performed and significant for mild left lower quad abdominal pain without peritonitis. Differential includes but is not limited to diverticulitis, bowel perforation, hernia, renal stone, UTI. Workup initiated including CBC CMP CT Abdo pelvis with IV contrast, UA. Patient was given Tylenol and Toradol for pain control. On re-evaluation, patient [remains afebrile, HD stable.] Laboratory workup independently interpreted by me and significant for mild leukocytosis with white count of 14, urine shows 5-10 WBCs and trace bacteria, negative nitrate. Patient has no urinary symptoms to suggest UTI. No indication for treatment at this time. Imaging independently interpreted by me and significant for acute nonperforated diverticulitis of the colon. See radiology read for full review of final results. Admission for IV antibiotics was considered, but deemed unnecessary due to patient does not meet criteria for admission for inpatient management of diverticulitis. . Given patient history, exam and workup, patient's presentation most likely represents acute uncomplicated diverticulitis of the colon. Patient was given dose of Augmentin in ED and discharged with prescription for same. Extensive return precautions were given to patient. Procedures Risk/Benefits of Procedure(s) Were Explained: Yes Critical Care Critical Care Time Critical Care Time: No
[2023-12-30] MEDS: SODIUM CHLORIDE 0.9% 10ML SYR (RAD ONLY) 10 ML IV (23:42)
[2023-12-30] MEDS: IOPAMIDOL-370 (76%);100ML BOTTLE 75 ML IV (23:42)
[2023-12-31 00:04] LABS: Bacteria,Urine Trace /lpf
[2023-12-31 00:33] VITALS: BP 137/73; PULSE 92; RESP 17; TEMP 36.7; O2SAT 95
[2023-12-31] MEDS: AMOXICILLIN/CLAVULANATE POTASSIUM 875/125MG TABLET 1 EACH PO (00:34)
--- NOTE | 2024-01-04 13:22 | PC.NURSE ---
aware of urine culture results, pt dc with augmentin, NTD
== END 2023-12-31 00:38 | disposition home or self-care (01) ==
PROVIDERS: Emergency Provider Emergency Medicine; PCP Internal Medicine
DX: R10.31 Right lower quadrant pain (principal); K57.32 Diverticulitis of large intestine without perforation or abscess without bleeding; B96.29 Other Escherichia coli [E. coli] as the cause of diseases classified elsewhere; I10 Essential (primary) hypertension
CPT/HCPCS: 74177; 80053; 81001; 85025; 87086; 96374; 99284; Q9967

== ENCOUNTER 2024-04-11 11:00 | Outpatient (RCR) | payer MEDICARE, BC, SELFPAY | END 2024-04-11 11:05 | disposition home or self-care (01) | LOC: PT 11:00 | PROVIDERS: Visit Provider Internal Medicine | DX: M51.36 Other intervertebral disc degeneration, lumbar region (principal); R53.1 Weakness; M25.60 Stiffness of unspecified joint, not elsewhere classified | CPT/HCPCS: 97010; 97014; 97110; 97140; 97163; 97164; 97530; G0283 ==

== ENCOUNTER 2024-07-31 08:05 | Day surgery (SDC) | payer MEDICARE, BC, SELFPAY ==
[2024-07-31] VITALS (14 sets, daily range): BP systolic 100–168; BP diastolic 57–81; PULSE 59–85; RESP 15–24; TEMP 36.3–36.7; O2SAT 91–98; BMI 33.0
--- NOTE | 2024-07-31 08:16 | PC.NURSE ---
Dr. Vicente at [facility] for pt eval
--- NOTE | 2024-07-31 08:21 | CT_ITS ---
FINAL REPORT CLINICAL HISTORY: RLQ abd pain COMPARISON: 12/30/2023 FINDINGS: CT OF THE ABDOMEN AND PELVIS WITH CONTRAST Axial CT images of the abdomen and pelvis were obtained after the administration of IV contrast. Coronal and sagittal reformatted images were also obtained and reviewed. This study was performed with techniques to keep radiation doses as low as reasonably achievable (ALARA). Individualized dose reduction techniques using automated exposure control or adjustment of mA and/or kV according to the patient's size were employed. Abdomen: There is mild scarring present in the lung bases.. The heart is normal in size. The liver has an unremarkable appearance, without evidence of mass or biliary ductal dilatation. The gallbladder has been surgically resected. The spleen is unremarkable. No adrenal mass is present. The pancreas has an unremarkable appearance. The kidneys are normal, without evidence of mass or hydronephrosis. The aorta is normal in caliber. There is no free fluid or adenopathy. No mass or abnormal fluid collection is seen. Pelvis: The appendix is enlarged, measuring up to 14 mm in thickness with mild adjacent inflammatory change consistent with mild acute appendicitis. There are the urinary bladder is unremarkable. Postoperative changes are noted in the right pelvis. There are densely calcified fibroids present in the uterus. There is no evidence of bowel obstruction. Sigmoid diverticulosis is present without acute inflammatory change. IMPRESSION: Enlarged appendix with wall thickening and mild adjacent inflammatory change consistent with mild acute appendicitis. Multiple nonspecific mesenteric nodes are noted in the right side, favor reactive. Sigmoid diverticulosis is present without acute inflammatory change. Reviewed, Interpreted and Dictated by Gaudencio Mccray III, MD Transcribed by Narcisa Hernandez Authenticated and [facility]
--- NOTE | 2024-07-31 08:23 | PC.NURSE ---
WARM BLANKET PROVIDED, CALL LIGHT WITHIN REACH
[2024-07-31] MEDS: ONDANSETRON 4MG/2ML VIAL 4 MG IV (08:29)
[2024-07-31] MEDS: LACTATED RINGERS 1000ML 1,000 ML 999 ML IV (08:29)
[2024-07-31 08:30] LABS: Basophils # 0.1 K/mm3 (0-0.2); Basophils % 1.4 % (0.1-2.0); Eosinophils # 0.1 K/mm3 (0.0-0.4); Eosinophils % 1.8 % (0.1-12.0); Hematocrit 43.9 % (37.0-47.0); Hemoglobin 14.5 g/dL (12.2-16.2); Lymphocytes # 2.1 K/mm3 (0.7-4.5); Lymphocytes % 32.5 % (10-50); Mean Corpuscular Hemoglobin 30.2 pg (27.0-31.2); Mean Corpuscular Volume 91.7 fl (81-99); Mean Platelet Volume 8.3 fl (7.4-10.4); Monocytes # 0.6 K/mm3 (0.1-1.0); Monocytes % 9.3 % (1.7-9.3); Neutrophils # 3.6 K/mm3 (1.8-7.8); Neutrophils % 55.1 % (37.0-80.0); Platelet Count 209 K/mm3 (142-424); Red Blood Count 4.79 M/mm3 (4.20-5.40); Red Cell Distribution Width 13.7 % (11.5-17.5); White Blood Count 6.6 K/mm3 (4.8-10.8)
[2024-07-31 08:40] LABS: Lactic Acid 1.2 mmol/L (0.7-2.1)
[2024-07-31 08:41] LABS: Alanine Aminotransferase 23 U/L (12-78); Albumin Level 3.9 g/dl (3.5-5.0); Albumin/Globulin Ratio 1.3 (1.1-1.8); Alkaline Phosphatase 74 U/L (38-126); Anion Gap 9.3 mEq/L (5-15); Aspartate Amino Transferase 26 U/L (14-36); Bilirubin,Total 0.8 mg/dl (0.2-1.3); Blood Urea Nitrogen 14 mg/dl (7-17); Calcium 9.2 mg/dl (8.4-10.2); Carbon Dioxide 24 mmol/L (22.0-30.0); Chloride 108 mmol/L (98-107); Creatinine Clearance Estimated 78 mL/min (50-200); Estimated Glomerular Filt Rate 71 ml/min (>60); GFR (African American) 86 ML/MIN (>60); Globulin 2.9 g/dL (1.3-3.2); Glucose 113 mg/dl (74-100); Lipase 61 U/L (23-300); Potassium 3.3 mmoL/L (3.5-5.1); Sodium 138 mmol/L (136-145); Total Protein,Serum 6.8 g/dl (6.3-8.2)
[2024-07-31 08:47] LABS: Microscopic, Urine URINE MICROSCOPIC (MICROSCOPIC)
--- NOTE | 2024-07-31 08:47 | HMH.EDGENADL ---
Discharge Plan Disposition Patient Disposition: Admitted Chief Complaint: Abdominal Pain Prescriptions Prescriptions: No Action lisinopril 10 mg tablet 10 mg PO DAILY gabapentin 300 mg capsule 300 mg PO .COMPLEX Rx Instructions: 300 mg orally one am,one pm ,2 at hs; cholecalciferol (vitamin D3) 25 mcg (1,000 unit) tablet 25 mcg PO DAILY vitamin E 268 mg (400 unit) capsule 804 mg PO DAILY multivitamin [Daily Multi-Vitamin] Tablet 1 tab PO DAILY melatonin 10 mg capsule 10 mg PO HS PRN meloxicam 7.5 mg tablet 7.5 mg PO DAILY 30 Days Qty: 30 2RF diclofenac sodium 1 % gel 4 g topical QID PRN (Reason: pain ) 30 Days Qty: 100 2RF Rx Instructions: apply to single, ankle, foot; for foot includes sole/toes/top of foot fluticasone propionate 120 SPR/BOT bottle 1 - 2 spr intranasal DAILY Rx Instructions: each nostril daily amoxicillin-pot clavulanate 875-125 mg tablet 1 tab PO BID 5 Days Qty: 10 0RF Referrals Follow up/Referrals: Gracie Hutton MD [Primary Care Provider] - See instructions Clinical Impressions Clinical Impression: Abdominal pain, Acute appendicitis Instructions Patient Instructions: DI for Acute Abdominal Pain Print Language Print Language: [place] Discharge ED Provider: Joey Vicente General Adult HPI General Chief complaint: Abdominal Pain Stated complaint: abd pain/right side Time Seen by Provider: 07/31/24 08:07 Mode of Arrival: Ambulatory Source of Information: Patient Limitations: No Limitations Description of Symptoms (Recalled from ER Triage Doc. by RN): pt to the ED with RLQ pain since yesterday morning. Pt denies N/V/D at this time. pt reports she had a pain like this back in december and was diagnosed with diverticulitis. History of Present Illness HPI narrative: This is a 68-year-old female with a past medical history of hypertension who presents with right lower quadrant abdominal pain. States that pain began yesterday. Denies associated nausea or vomiting. States that she had a small bowel movement yesterday and has not had a bowel movement today. States that she feels like she needs to pass gas. States that she had similar abdominal pain in a different area in the past and was told that she had diverticulosis or diverticulitis. Also reports an episode of large-volume diarrhea on this past , however has not had any since then. Related Data Home Medications ?Medication ?Instructions ?Recorded ?Confirmed fluticasone propionate 50 1 - 2 spr intranasal DAILY 07/11/21 03/01/24 mcg/actuation nasal ALLERGIES spray,suspension cholecalciferol (vitamin D3) 25 25 mcg PO DAILY 09/09/22 03/01/24 mcg (1,000 unit) tablet gabapentin 300 mg capsule 300 mg PO .COMPLEX 09/09/22 03/01/24 lisinopril 10 mg tablet 10 mg PO DAILY 09/09/22 03/01/24 vitamin E 268 mg (400 unit) capsule 804 mg PO DAILY 10/07/23 03/01/24 melatonin 10 mg capsule 10 mg PO HS PRN 12/23/23 03/01/24 multivitamin (Daily Multi-Vitamin 1 tab PO DAILY 12/23/23 03/01/24 tablet) Previous Rx's ?Medication ?Instructions ?Recorded diclofenac sodium 1 % topical gel 4 g topical QID PRN pain 30 days 12/23/23 #100 grams meloxicam 7.5 mg tablet 7.5 mg PO DAILY pain 30 days #30 12/23/23 tabs amoxicillin 875 mg-potassium 1 tab PO BID 5 days #10 tabs 12/31/23 clavulanate 125 mg tablet Allergies Allergy/AdvReac Type Severity Reaction Status Date / Time cefaclor [From Ceclor] Allergy Verified 03/01/24 10:56 cefuroxime [From Ceftin] Allergy Verified 03/01/24 10:56 sulfamethoxazole Allergy Joint Pain Verified 03/01/24 10:56 [From Bactrim] trimethoprim [From Bactrim] Allergy Joint Pain Verified 03/01/24 10:56 [facility] Disclaimer: The information contained in this section may have been updated after the patient was seen, as this information can be updated by other users. Medical History Insomnia Slowly noticing symptomatic improvement with treatment of KEZIA in addition to melatonin, gabapentin, cyclobenzaprine all taken at 9 PM. Did not care for trazodone. KEZIA (obstructive sleep apnea) Moderate nonpositional KEZIA, compliant on CPAP Hypertension Surgical History History of colon resection History of 2 sections Family History Father Hypertension Arthritis Mother Arthritis Asthma Social History Smoking Status: Never smoker second hand exposure: No alcohol intake: current alcohol intake frequency: a few times a month substance use type: denies use current occupational status: retired Travel in the last 8 weeks: Inside the [place] household members: spouse housing: house current occupational exposures/hazards: No caffeine: Yes Other Medical History Have you received the Flu Vaccine for this season: No Have you received the Pneumonia Vaccine: Yes ROS Obtained: Yes All systems reviewed & no additional complaints except as documented Physical Exam General General appearance: alert and in no apparent distress Eye Eye exam: Present normal appearance, PERRL and EOMI Respiratory Respiratory exam: Present normal lung sounds bilaterally; Absent respiratory distress Cardiovascular Cardiovascular exam: Present regular rate and normal rhythm Abdominal Exam Abdominal exam: Present soft and distention; Absent tenderness, guarding or rebound Extremities Exam Extremities exam: Present normal inspection Neurological Exam Neurological exam: Present alert and oriented X3 Skin Skin exam: Present warm and dry Medical Decision Making Medical Records Medical records reviewed: Yes I reviewed the patient's medical records. Screening: Per USPSTF and CDC recommendations, given the prevalence of disease in our region, it is our hospital?s policy to screen for HIV and viral Hepatitis for all patients aged 18 and over and those with ongoing risk factors. [place] Inquiry Pt receiving controlled substance: No Vital Signs: 07/31/24 08:06 07/31/24 08:13 07/31/24 08:30 Temperature 97.5 F L Temperature Source Oral Pulse Rate 85 77 Pulse Rate [Left Radial] 85 Respiratory Rate 16 Blood Pressure 168/81 H 164/81 H Blood Pressure [Right Arm] 168/81 H Blood Pressure Mean 110 108 Blood Pressure Mean [Right Arm] 110 Blood Pressure Source [Right Arm] Automatic Cuff Blood Pressure Position [Right Arm] Sitting 02 Sat by Pulse Oximetry 97 96 95 Oxygen Delivery Method Room Air 07/31/24 09:30 07/31/24 10:29 Temperature Temperature Source Pulse Rate 70 68 Pulse Rate [Left Radial] Respiratory Rate Blood Pressure 142/75 H 162/78 H Blood Pressure [Right Arm] Blood Pressure Mean Blood Pressure Mean [Right Arm] Blood Pressure Source [Right Arm] Blood Pressure Position [Right Arm] 02 Sat by Pulse Oximetry 95 98 Oxygen Delivery Method Room Air Room Air Lab Data Lab Results 07/31/24 08:05: Urine Color Yellow, Urine Appearance Clear, Urine pH 6.0, Ur Specific [place] 1.025, Urine Protein Negative, Urine Glucose (UA) Negative, Urine Ketones Negative, Urine Blood Trace-i, Urine Nitrate Negative, Urine Bilirubin Negative, Urine Urobilinogen 0.2, Ur Leukocyte Esterase 1+ A, Urine RBC Occasional, Urine WBC 3-5, Ur Squamous Epith Cells Occasional, Urine Bacteria None 07/31/24 08:15: WBC 6.6, RBC 4.79, Hgb 14.5, Hct 43.9, MCV 91.7, MCH 30.2, MCHC 33.0, RDW 13.7, Plt Count 209, MPV 8.3, Neut % (Auto) 55.1, Lymph % (Auto) 32.5, [place] % (Auto) 9.3, Eos % (Auto) 1.8, Baso % (Auto) 1.4, Neut # (Auto) 3.6, Lymph # (Auto) 2.1, [place] # (Auto) 0.6, Eos # (Auto) 0.1, Baso # (Auto) 0.1, Sodium 138, Potassium 3.3 L, Chloride 108 H, Carbon Dioxide 24, Anion Gap 9.3, BUN 14, Creatinine 0.80, Estimated Creat Clear 78, Estimated GFR 71, Est GFR ( Amer) 86, Glucose 113 H, Lactate 1.2, Calcium 9.2, Total Bilirubin 0.8, AST 26, ALT 23, Alkaline Phosphatase 74, Total Protein 6.8, Albumin 3.9, Globulin 2.9, Albumin/Globulin Ratio 1.3, Lipase 61, HIV 1&2 Antibody Rapid Nonreactive 07/31/24 08:15 07/31/24 08:15 Orders (Tests/Meds): ED MEDICATIONS Generic Name Dose Route Start Last Admin Trade Name Freq PRN Reason Stop Dose Admin Sodium Chloride 10 ml 07/31/24 08:59 07/31/24 08:59 Sodium Chloride 0.9% 10ml Syr (Rad Only) IV 08/30/24 08:58 10 ml NEEDED PRN Administration Maintain IV Site Discontinued Medications Generic Name Dose Route Start Last Admin Trade Name Freq PRN Reason Stop Dose Admin Lactated Ringer's 1,000 mls @ 999 mls/hr 07/31/24 08:21 07/31/24 08:29 Lactated Ringer's 1000 Ml Bag IV 07/31/24 09:21 999 mls/hr .Q1H1M ONE Administration Iopamidol 75 ml 07/31/24 08:59 07/31/24 08:59 Iopamidol-370 (76%);100ml Bottle IV 07/31/24 09:00 75 ml ONCE ONE Administration Ondansetron HCl 4 mg 07/31/24 08:21 07/31/24 08:29 Ondansetron 4mg/2ml Vial IV 07/31/24 08:22 4 mg ONCE ONE Administration Potassium Chloride 40 meq 07/31/24 09:08 07/31/24 09:19 Potassium Chloride 20meq Tab PO 07/31/24 09:09 40 meq ONCE ONE Administration ORDERS Category Date Time Status CT abdomen pelvis w con Stat Cat Scan 07/31/24 08:21 Completed CBC w/Auto Diff [Complete Blood Count Auto Diff] Stat Lab 07/31/24 08:15 Completed CMP [Comprehensive Metabolic Panel] Stat Lab 07/31/24 08:15 Completed HIV (1&2) Antibody Rapid Stat Lab 07/31/24 08:15 Completed Hep C Ab with Reflex to RNA Stat Lab 07/31/24 08:15 Received Lactic Acid Stat Lab 07/31/24 08:15 Completed Lipase Stat Lab 07/31/24 08:15 Completed Urinalysis and Microscopic Stat Lab 07/31/24 08:05 Completed Urine Culture Stat Micro 07/31/24 08:05 Received Medical Decision Narrative: In summary, this 68-year-old female with a history of hypertension presents to the emergency department today with right lower quadrant abdominal pain. On initial evaluation patient is afebrile, hemodynamically stable, nontoxic-appearing, benign abdominal exam. Differential diagnosis includes but is not limited to appendicitis, bowel obstruction, colitis, UTI. Based on these concerns, I ordered CBC, CMP, PT/INR, lipase, lactate, urinalysis, CT abdomen pelvis with IV contrast. Patient received Zofran and 1 L LR for treatment. Labs personally reviewed demonstrate normal white blood cell count, mild hypokalemia 3.3 which was repleted orally, normal lipase, otherwise unremarkable CMP, no UTI on UA. CT imaging personally interpreted demonstrates acute appendicitis. This was confirmed on radiology report. Noted 14 mm appendix. No perforation or abscess. I had an interactive discussion with general surgeon who recommended holding off antibiotics for now and planned to take the patient to the OR for operative intervention today. Stated that he would make decision regarding disposition postop. Critical Care Critical Care Time Critical Care Time: No
[2024-07-31 08:55] LABS: Appearance,Urine CLEAR (Clear); Bilirubin,Urine Negative (Negative); Blood, Urine TRACE-I (Negative); Color,Urine YELLOW (Yellow); Glucose,Urine (UA) Negative (Negative); Ketones,Urine Negative (Negative); Leukocyte Esterase,Urine 1+ (Negative); Nitrate,Urine Negative (Negative); Protein,Urine Negative (Negative); Specific Gravity, Urine 1.025 (1.005-1.030); Urobilinogen,Urine 0.2 EU/dl (0.2)
--- NOTE | 2024-07-31 08:55 | PC.NURSE ---
PT TO CT
[2024-07-31] MEDS: IOPAMIDOL-370 (76%);100ML BOTTLE 75 ML IV (08:59)
[2024-07-31] MEDS: SODIUM CHLORIDE 0.9% 10ML SYR (RAD ONLY) 10 ML IV (08:59)
[2024-07-31 09:15] LABS: RBC,Urine Occasional #/hpf (0-3); Squamous Epithelial Cell,Urine Occasional #/hpf (0-5)
[2024-07-31] MEDS: POTASSIUM CHLORIDE 20MEQ TAB 40 MEQ PO (09:19)
--- NOTE | 2024-07-31 10:07 | PC.NURSE ---
Dr. Vicente at bedside
--- NOTE | 2024-07-31 10:12 | PC.NURSE ---
Called surgery for consults. Was advised Dr. Davis was in surgery and they would send him a message to call back.
--- NOTE | 2024-07-31 10:31 | PC.NURSE ---
Dr. Davis called back and advised he would be taking pt to surgery. Pt changed into gown. No other needs voiced and call light within reach.
[2024-07-31 10:52] LABS: HIV (1&2) Antibody Rapid NONREACTIVE (NONREACTIVE)
--- NOTE | 2024-07-31 12:17 | EXP.HP ---
History of Present Illness *Admission Date: 07/31/24 *Reason for visit:: Abdominal pain *History of present illness: Patient is a 68-year-old female who presented to the emergency department with about a 24-hour history of right lower quadrant pain. She did have similar symptoms in December of this year and was diagnosed with diverticulitis. Evaluation in the emergency department included CT scan which reveals enlarged appendix with wall thickening and mild adjacent inflammatory change consistent with mild acute appendicitis. Appendix measures 14 mm. Surgery was consulted. Patient had previous strangulated right inguinal hernia requiring small bowel resection in 2007. . [facility] Disclaimer: The information contained in this section may have been updated after the patient was seen, as this information can be updated by other users. Medical History Insomnia Slowly noticing symptomatic improvement with treatment of KEZIA in addition to melatonin, gabapentin, cyclobenzaprine all taken at 9 PM. Did not care for trazodone. KEZIA (obstructive sleep apnea) Moderate nonpositional KEZIA, compliant on CPAP Hypertension Surgical History History of colon resection History of 2 sections Family History Father Hypertension Arthritis Mother Arthritis Asthma Social History Smoking Status: Never smoker second hand exposure: No alcohol intake: current alcohol intake frequency: a few times a month substance use type: denies use current occupational status: retired Travel in the last 8 weeks: [place] the [place] household members: spouse housing: house current occupational exposures/hazards: No caffeine: Yes Other Medical History Have you received the Flu Vaccine for this season: No Have you received the Pneumonia Vaccine: Yes Meds Home Medications and Allergies Home Medications ?Medication ?Instructions ?Recorded ?Confirmed ?Type fluticasone propionate 50 1 - 2 spr intranasal DAILY 07/11/21 03/01/24 History mcg/actuation nasal ALLERGIES spray,suspension cholecalciferol (vitamin D3) 25 25 mcg PO DAILY 09/09/22 03/01/24 History mcg (1,000 unit) tablet gabapentin 300 mg capsule 300 mg PO .COMPLEX 09/09/22 03/01/24 History lisinopril 10 mg tablet 10 mg PO DAILY 09/09/22 03/01/24 History vitamin E 268 mg (400 unit) capsule 804 mg PO DAILY 10/07/23 03/01/24 History diclofenac sodium 1 % topical gel 4 g topical QID PRN pain 30 days 12/23/23 03/01/24 Rx #100 grams melatonin 10 mg capsule 10 mg PO HS PRN 12/23/23 03/01/24 History meloxicam 7.5 mg tablet 7.5 mg PO DAILY pain 30 days #30 12/23/23 03/01/24 Rx tabs multivitamin (Daily Multi-Vitamin 1 tab PO DAILY 12/23/23 03/01/24 History tablet) amoxicillin 875 mg-potassium 1 tab PO BID 5 days #10 tabs 12/31/23 03/01/24 Rx clavulanate 125 mg tablet New Prescriptions to Start Prescriptions: Allergies Allergy/AdvReac Type Severity Reaction Status Date / Time cefaclor [From Ceclor] Allergy Verified 03/01/24 10:56 cefuroxime [From Ceftin] Allergy Verified 03/01/24 10:56 sulfamethoxazole Allergy Joint Pain Verified 03/01/24 10:56 [From Bactrim] trimethoprim [From Bactrim] Allergy Joint Pain Verified 03/01/24 10:56 Exam Data for Last 24 hours Vital signs and Labs for Last 24 Hours: Temp Pulse Resp BP Pulse Ox O2 Del Method 97.5 F L 68 16 162/78 H 98 Room Air 07/31/24 08:06 07/31/24 10:29 07/31/24 08:06 07/31/24 10:29 07/31/24 10:29 07/31/24 10:29 Laboratory Results - last 24 hr 07/31/24 08:05: Urine Color Yellow, Urine Appearance Clear, Urine pH 6.0, Ur Specific [place] 1.025, Urine Protein Negative, Urine Glucose (UA) Negative, Urine Ketones Negative, Urine Blood Trace-i, Urine Nitrate Negative, Urine Bilirubin Negative, Urine Urobilinogen 0.2, Ur Leukocyte Esterase 1+ A, Urine RBC Occasional, Urine WBC 3-5, Ur Squamous Epith Cells Occasional, Urine Bacteria None 07/31/24 08:15: WBC 6.6, RBC 4.79, Hgb 14.5, Hct 43.9, MCV 91.7, MCH 30.2, MCHC 33.0, RDW 13.7, Plt Count 209, MPV 8.3, Neut % (Auto) 55.1, Lymph % (Auto) 32.5, [place] % (Auto) 9.3, Eos % (Auto) 1.8, Baso % (Auto) 1.4, Neut # (Auto) 3.6, Lymph # (Auto) 2.1, [place] # (Auto) 0.6, Eos # (Auto) 0.1, Baso # (Auto) 0.1, Sodium 138, Potassium 3.3 L, Chloride 108 H, Carbon Dioxide 24, Anion Gap 9.3, BUN 14, Creatinine 0.80, Estimated Creat Clear 78, Estimated GFR 71, Est GFR ( Amer) 86, Glucose 113 H, Lactate 1.2, Calcium 9.2, Total Bilirubin 0.8, AST 26, ALT 23, Alkaline Phosphatase 74, Total Protein 6.8, Albumin 3.9, Globulin 2.9, Albumin/Globulin Ratio 1.3, Lipase 61, HIV 1&2 Antibody Rapid Nonreactive I & O for Last 24 hours: Intake & Output 07/29/24 07/30/24 07/31/24 08/01/24 11:59 11:59 11:59 11:59 Weight 205 lb Constitutional Constitutional: no acute distress *Routine HEENT Exam Head: Present normocephalic Eye: Present EOMI and PERRL ENT: Present mucous membranes moist *Routine Neck Exam Neck: Present supple; Absent lymphadenopathy *Routine Respiratory Exam Respiratory: Present CTA bilaterally *Routine Cardiovascular Exam Cardiovascular: Present RRR *Routine Abdominal Exam Abdominal: Present soft, normoactive bowel sounds and tenderness *Routine Rectal Exam Rectal:: deferred *Routine Genitalia Exam Genitalia:: deferred *Routine Extremities Exam Extremities: Absent cyanosis, clubbing or edema *Routine Skin Exam Skin: Present warm; Absent rash *Routine Neurological Exam Neurological: Present alert and oriented X3 Assessment and Plan *Assessment and plan (1) Acute appendicitis: Status: Acute Qualifiers: Acute appendicitis type: with localized peritonitis Appendicitis abscess presence: without abscess Appendicitis gangrene presence: without gangrene Appendicitis perforation presence: without perforation Qualified Code(s): K35.30 - Acute appendicitis with localized peritonitis, without perforation or gangrene Category: Medical Code(s): K35.80 - Unspecified acute appendicitis Plan Plan to proceed with a laparoscopic and possible open appendectomy. Nature and details of the proposed procedure along with associated risks and expected outcome were explained to the patient. She understands and agrees to proceed.
--- NOTE | 2024-07-31 12:18 | PC.NURSE ---
REPORT GIVEN TO RADHA
--- NOTE | 2024-07-31 12:56 | EXP.ANES.CKL ---
[facility] Disclaimer: The information contained in this section may have been updated after the patient was seen, as this information can be updated by other users. Medical History Insomnia Slowly noticing symptomatic improvement with treatment of KEZIA in addition to melatonin, gabapentin, cyclobenzaprine all taken at 9 PM. Did not care for trazodone. KEZIA (obstructive sleep apnea) Moderate nonpositional KEZIA, compliant on CPAP Hypertension Surgical History History of colon resection History of 2 sections Family History Father Hypertension Arthritis Mother Arthritis Asthma Social History Smoking Status: Never smoker second hand exposure: No alcohol intake: current alcohol intake frequency: a few times a month substance use type: denies use current occupational status: retired Travel in the last 8 weeks: [place] the [place] household members: spouse housing: house current occupational exposures/hazards: No caffeine: Yes [facility] Anesthesia Checklist Patient Identification Patient Identification: Arm Band and Family Structural Data Admitted From: Emergency Dept Planned Operative Procedure/s: Appendectomy Consent for Planned Operative Procedure(s) Verified: Yes Verified Documents: Surgical Consent and History and Physical NPO Status Verified Time NPO: 00:00 Additional verifications Patient : No Anesthesia Reactions: No Hx Blood Transfusions: No Blood Transfusion Reaction: No Cephalosporin Allergy: No Previous Colonoscopy: No Airway Assessment Mallampati Score:: Class II C-Spine Mobility Assessed: Yes TMJ Mobility Assessed: Yes Dentition: Good Dentition Neurological Assessment Level of Consciousness: Awake, Alert, Appropriate and Follows Commands Hx Seizures: No Numbness or tingling in extremities: No Anesthesia Plan Anesthesia Risk discussed: Yes ASA Class: II Anesthesia Type: General Preoperative Comments Pre-Operative Comments: Hypertension. Appendicitis.
[2024-07-31] MEDS: AZTREONAM 2 GM in 0.9 % SODIUM CHLORIDE 100 ML IV (14:10)
[2024-07-31] MEDS: LIDOCAINE 1% 10ML MDV 10 ML (14:18)
[2024-07-31] MEDS: ROPIVACAINE 0.5% 30ML VIAL 150 MG (14:18)
--- NOTE | 2024-07-31 15:37 | EXP.OP.NOTE ---
Date of procedure: 07/31/24 Pre-op Diagnosis:: Acute appendicitis Post-op Diagnosis:: Same Procedure performed:: Laparoscopic appendectomy Surgeon:: Gaudencio Davis MD CONSUMER LOAN UNDERWRITER:: Adonis Strickland Anesthesia: FADY Estimated blood loss (mL): 15 Clinical Note:: Patient is a 68-year-old female who presented to the emergency department with about a 24-hour history of right lower quadrant pain. She did have similar symptoms in December of this year and was diagnosed with diverticulitis. Evaluation in the emergency department included CT scan which reveals enlarged appendix with wall thickening and mild adjacent inflammatory change consistent with mild acute appendicitis. Appendix measures 14 mm. Surgery was consulted. Patient had previous strangulated right inguinal hernia requiring small bowel resection in 2007. . Operative findings:: She had some adhesions of the small bowel to the anterior pelvis on the right pelvic area from previous hernia repair. She had somewhat of a redundant cecum with a partially retrocecal appendix which was densely adherent to the ascending colon. Appendix was thickened and indurated consistent with uncomplicated appendicitis. . Operative note:: Consent was obtained patient was taken to the operating room. She was given preoperative intravenous antibiotics. In the operating room she was placed in a supine position. General anesthesia was induced via endotracheal tube. Zhu catheter was placed. Abdomen was prepped and draped in the standard surgical fashion. Due to the multiple lower abdominal pelvic surgeries that she has undergone a 5 mm trocar was inserted carefully in the left subcostal region. CO2 pneumoperitoneum was achieved. Abdominal surveillance was carried out and she actually had minimal lower abdominal adhesions but there were adhesions in the right pelvis. 12 mm trocar was inserted in the infraumbilical location. Ultimately 5 mm trocar was inserted in the suprapubic pubic region under laparoscopic visualization and 5 mm trocar was inserted in the right upper abdomen. Some of the adhesions were taken down carefully using Metzenbaum dissection. The cecum was mobilized medially. The appendix was identified and found to be partially retrocecal. Cecum was redundant and somewhat looped back upon itself. Careful dissection was carried out partially mobilizing the appendix from its tip initially incising the peritoneal attachments to the cecum. Dissection was then carried out dividing the mesoappendix with ACOSTA ultrasonic harmonic ruthie. Care was taken to coagulate the appendiceal artery in the process. There is some minor oozing along the mesoappendix during the dissection process and Surgicel was placed for hemostasis which was then removed. Additional dissection was carried out down to the base of the appendix which was relatively uninflamed. The appendix was divided at its base with an endoscopic PHONG linear cutting stapling device. Appendix was placed within an Endo Catch retrieval device and removed from the peritoneal cavity via the umbilical trocar site. There was some minor oozing from the lateral staple line just lateral to the appendiceal stump corresponding with the appendiceal artery. Hemoclip was placed for good hemostasis. Irrigation and suctioning was performed until clear. Staple line was inspected for hemostasis and integrity which appeared adequate. Trocars were then removed as CO2 pneumoperitoneum was evacuated. Fascia at the umbilicus was closed with a couple of interrupted 0 Vicryl sutures. Local anesthetic was infiltrated. Skin incisions were closed with 4-0 Monocryl in a subcuticular fashion. Steri-Strips were applied. . Condition: stable Disposition: PACU Complications:: None immediately apparent
--- NOTE | 2024-07-31 15:55 | P.PNANES_ITS ---
[facility] Anesthesia Record Part I Anesthesia Record I Intake, IV Amount: 1,100 Hydration: Adequate Estimated blood loss (mL): 10 Urine output (mL): 200 Blood Products used (#): none Blood Pressure: 121/71 SaO2: 91 Pulse Rate: 80 Airway Patency: Patent Respiratory Rate: 24 Temperature: 97.3 F Patient is:: Drowsy and Stable Stable to PACU at:: 15:45 Comments:: Slow to awaken. Stable.
[2024-07-31 15:56] LABS: Microscopic,Cath URINE MICROSCOPIC (MICROSCOPIC)
[2024-07-31] MEDS: HYDROMORPHONE 2MG/ML SYRINGE 0.5 MG IV (16:08)
[2024-07-31 16:32] LABS: Appearance,Urine/Cath CLEAR (Clear); Bilirubin,Cath Negative (Negative); Blood, Urine/Cath Negative (Negative); Color,Urine/Cath YELLOW (Yellow); Glucose,Urine/Cath (UA) Negative (Negative); Ketones,Urine/Cath Negative (Negative); Leukocyte Esterase,Cath Negative (Negative); Nitrate,Cath Negative (Negative); PH,Urine/Cath 5.5 (5.0-8.5); Protein,Urine/Cath Negative (Negative); Specific Gravity, Urine/Cath 1.015 (1.005-1.030); Urobilinogen,Cath 0.2 EU/dl (0.2)
[2024-07-31 18:06] LABS: RBC,Urine/Cath Occasional # /hpf (0-3)
[2024-08-01 05:15] LABS: HCV Ab Non Reactive (Non Reactive)
--- NOTE | 2024-08-01 08:39 | EXP.ANES.II ---
[facility] Anesthesia Record Part II Anesthesia Record Part II Discharge Time: 16:15 Destination: Surgical Day Care (OP Surgery) PACU nurse assessment reviewed?: Yes Patient Condition:: Good Anesthesia Complications:: None Swallowing reflex intact?: Yes Airway Patency: Patent Cyanosis?: No Blood Pressure: 114/61 SaO2: 94 Respiratory Rate: 15 Pulse Rate: 62 Temperature: 97.5 F Mental Status: Alert & Oriented Pain level:: 5 Nausea and/or vomitting:: None Intake, IV Amount: 0 Hydration: Adequate
[2024-08-01 08:41] VITALS: BP 114/61; PULSE 62; RESP 15; TEMP 36.4; O2SAT 94
== END 2024-07-31 17:00 | disposition home or self-care (01) ==
LOC: ER 10:56 → SDC 12:24
PROVIDERS: Emergency Provider Student in an Organized Health Care Education/Training Program; PCP Internal Medicine; Visit Provider Surgery
PROC: 0DTJ4ZZ Resection of Appendix, Percutaneous Endoscopic Approach (ICD-10-PCS; CPT 44970; principal; 2024-07-31 12:20)
DX: K35.30 Acute appendicitis with localized peritonitis, without perforation or gangrene (principal)
CPT/HCPCS: 44970; 74177; 80053; 81001; 83605; 83690; 85025; 86803; 87086; 87088; 87186; 87389; 88304; 99285; J3490; J1100; J1171; J2250; J2405; J3010; J7120; Q9967

== ENCOUNTER 2024-11-24 09:00 | Outpatient (RCR) | payer MEDICARE, BC, SELFPAY | END 2024-11-24 23:59 | disposition home or self-care (01) | LOC: PT 09:00 | PROVIDERS: Visit Provider Physician Assistant | DX: M51.360 Other intervertebral disc degeneration, lumbar region with discogenic back pain only (principal); M48.061 Spinal stenosis, lumbar region without neurogenic claudication | CPT/HCPCS: 97010; 97014; 97110; 97163; 97530; G0283 ==

== ENCOUNTER 2024-12-22 10:00 | Outpatient (RCR) | payer MEDICARE, BC, SELFPAY | END 2024-12-22 23:59 | disposition home or self-care (01) | LOC: PT 10:00 | PROVIDERS: Visit Provider Physician Assistant | DX: M51.360 Other intervertebral disc degeneration, lumbar region with discogenic back pain only (principal); M48.00 Spinal stenosis, site unspecified | CPT/HCPCS: 97010; 97014; 97110; 97140; 97530; G0283 ==

== ENCOUNTER 2025-01-16 16:00 | Outpatient (RCR) | payer MEDICARE, BC, SELFPAY | END 2025-01-16 23:59 | disposition home or self-care (01) | LOC: PT 16:00 | PROVIDERS: Visit Provider Physician Assistant | DX: M54.50 Low back pain, unspecified (principal); M48.00 Spinal stenosis, site unspecified | CPT/HCPCS: 97014; 97110; 97530; G0283 ==

== ENCOUNTER 2025-01-24 10:52 | Outpatient (RCR) | payer MEDICARE, BC, SELFPAY | END 2025-01-24 23:59 | disposition home or self-care (01) | LOC: PT 10:52 | PROVIDERS: Visit Provider Physician Assistant | DX: M51.360 Other intervertebral disc degeneration, lumbar region with discogenic back pain only (principal); M48.00 Spinal stenosis, site unspecified | CPT/HCPCS: 97110 ==

== ENCOUNTER 2025-10-23 13:00 | Outpatient (RCR) | payer MEDICARE, BC, SELFPAY | END 2025-10-23 23:59 | disposition home or self-care (01) | LOC: PT 13:00 | PROVIDERS: PCP Internal Medicine; Visit Provider Student in an Organized Health Care Education/Training Program | DX: M54.16 Radiculopathy, lumbar region (principal) | CPT/HCPCS: 97014; 97110; 97162; G0283 ==